=== PATIENT | female | born 1970 | race Caucasian/White ===

== ENCOUNTER 2016-09-02 19:54 | Emergency (ER) | payer OTHER ==
--- NOTE | ~2016-09-02 | CR72 ---
[facility]. [facility] A Service of [facility] RADIOLOGY TEXT RESULTS PATIENT: LUCERO MUELLER LOCATION: SED : 72 UNIT #: [id number] AGE: [address]: Joseph Holguin MD SEX: F ORDER DR: [id number] [address] [address] [id number] E MR#: [id number] Acc #: [id number] NAME: LUCERO MUELLER : 1970 SEX: F STUDY DATE/TIME: 09/02/2016 20:08 UNIT: SED ROOM: STUDY DESCRIPTION: CR Chest Single View Portable Attending Physician: Joseph Holguin M.D. Ordering Physician: Joseph Holguin M.D. Primary Care Physician: Anil Hidalgo M.D. MEDICAL IMAGING REPORT This report is preliminary unless electronic signature is present. EXAM Single portable AP view of the chest performed on 09/02/2016. HISTORY 46-year-old female with shortness of breath. FINDINGS In comparison to the previous exam of 02/01/2015, there has been no change in appearance of the chest. The heart is not enlarged. The lungs are clear and no pleural effusion or pneumothorax is identified. IMPRESSION No acute pulmonary disease and no cardiac enlargement. Dictated by... Anil Rodriguez M.D. THIS IS AN ELECTRONICALLY VERIFIED REPORT Anil Rodriguez M.D. at 09/03/2016 7:05 PM RP/nathen TD: 09/02/2016 23:59 JOB #: [id number] MEDICAL IMAGING REPORT
--- NOTE | ~2016-09-02 | EKG ---
PATIENT: LUCERO MUELLER UNIT #: [id number] Ventricular Rate: 147 BPM Atrial Rate: 147 BPM P-R Interval: 112 ms QRS Duration: 78 ms Q-T Interval: 346 ms QTC Calculation(Bezet): 541 ms Calculated R Garrison: 32 degrees Calculated T Garrison: 51 degrees Diagnosis Line: Sinus tachycardia Diagnosis Line: Poor R wave progression questionable lead position Diagnosis Line: or body habitus Otherwise normal ECG Diagnosis Line: When compared with ECG of 01-FEB-2015 00:54, Diagnosis Line: Vent. rate has increased BY 52 BPM Diagnosis Line: ST now depressed in Inferior leads Diagnosis Line: ST now depressed in Lateral leads Diagnosis Line: Nonspecific T wave abnormality now evident in Diagnosis Line: Inferior leads Diagnosis Line: Confirmed by JELLY CHEN MD ([id number]) on 09/03/2016 Diagnosis Line: 6:16:02 PM INTERPRETING MD: GUSTAVO MANCERA
[~2016-09-02 19:54] MED LIST: ALPRAZOLAM PO; AMOXICILLIN875 MG PO; ATARAX PO; ATENOLOL PO; AUGMENTIN PO; AURALGAN OTIC S10 M1 AD; B12; BENTYL20 MG DOB; BENTYL20 MG PO; BLACK COHOSH540 MG PO; CIPRO PO; CLARITIN10 MG PO; CYANOCOBAL1000 MCG/M INJ; DICLOFENAC PO; HAIR, SKIN & N1 EAC1 PO; IBUPROFEN PO; IBUPROFEN800 MG; IMODIUM2 MG PO; K-DUR20 ME1 PO; KCL PO; KEFLEX125 MG/5 M PO; LIBRAX CAPSULE1 CA1 PO; MELATONIN3 M4 PO; NITROFURANTOIN100 M3 PO; PEPCID AC20 M1 PO; PHENERGAN PO; PREDNISONE PO; PRILOSEC40 MG PO; TOPAMAX; TOPAMAX PO; TOPAMAX25 MG PO; VICODIN PO; XANAX0.5 M1 PO; XANAX0.5 MG PO; XANAX1 MG PO; ZYRTEC10 M2 PO
[2016-09-02 20:18] LABS: BASOPHIL% 0.5 % (0-2.5); EOSINOPHIL# 0.2 X10e3 (0-0.7); EOSINOPHIL% 2.9 % (0.0-7.0); HEMATOCRIT 44.9 % (35.0-45.0); HEMOGLOBIN 15.5 gm/dL (12.0-16.0); LYMPHOCYTE# 1.9 X10e3 (1.0-3.5); LYMPHOCYTE% 31.2 % (17.0-45.0); MEAN CELL VOLUME 97.2 FL (83-96); MEAN CORPUSCULAR HEMOGLOBIN 33.5 PG (28-34); MEAN CORPUSCULAR HGB CONC 34.5 g/dL (30-36); MEAN PLATELET VOLUME 8.2 FL (6.5-11.5); MONOCYTE# 0.7 X10e3 (0-1.0); NEUTROPHIL# 3.4 X10e3 (1.5-7.1); NEUTROPHIL% 54.4 % (40-75); PLATELET COUNT 298 X10e3 (140-420); RED BLOOD COUNT 4.62 X10e (3.90-5.30); RED CELL DISTRIBUTION WIDTH 12.4 % (11.0-15.5); WHITE BLOOD COUNT 6.2 X10e3 (4.0-10.5)
[2016-09-02 20:19] LABS: DIFF IND NO
[2016-09-02 20:40] LABS: BLOOD UREA NITROGEN 6 mg/dL (9-23); CALCIUM SERUM 9.1 mg/dL (8.4-10.2); CARBON DIOXIDE 25 mmol/L (22-31); CHLORIDE 100 mmol/L (100-111); CREATININE SERUM 0.5 mg/dL (0.6-1.4); GLOM FILT RATE Estimated ABOVE60 mL/min (>60); GLUCOSE FASTING 99 mg/dL (70-110); SODIUM 134 mmol/L (135-145)
[2016-09-02 20:41] LABS: POTASSIUM 2.8 mmol/L (3.5-5.1)
== END 2016-09-02 22:08 | disposition home or self-care (01) ==
LOC: SED 19:54
PROVIDERS: Emergency Medicine
DX: R07.89 Other chest pain (principal); R05 Cough; E87.6 Hypokalemia; F41.9 Anxiety disorder, unspecified
CPT/HCPCS: 36415; 71010; 80048; 83880; 85025; 85379; 93005; 96360; 99284